=== PATIENT | female | born 1985 | race Caucasian/White ===

== ENCOUNTER 2016-12-29 04:17 | Inpatient (IN) | payer OTHER ==
--- NOTE | ~2016-12-29 | OP ---
Record Of Operation [facility] [address] [place]. [address] NAME: TERRIE PACE : 83 STATUS : DIS IN PAT#: [id number] AGE: 31 ADM/REG DATE : 12/29/16 MR#: [id number] REPORT SERV DATE: 01/01/17 DICTATED BY: PARADISE FERREIRA II DATE: 01/01/17 REPORT STATUS : Draft TRANSCRIBED BY: MODYusuf DATE: 01/01/17 DATE OF PROCEDURE: 12/29/2016 PREOPERATIVE DIAGNOSES: 1. L5-S1 degenerative disk disease with significant diskogenic back pain. 2. Foraminal stenosis, L5-S1. 3. Bilateral lower extremity radiculopathy secondary to stenosis. POSTOPERATIVE DIAGNOSES: 1. L5-S1 degenerative disk disease with significant diskogenic back pain. 2. Foraminal stenosis, L5-S1. 3. Bilateral lower extremity radiculopathy secondary to stenosis. PROCEDURE: Stage I (anterior) 1. L5-S1 anterior interbody arthrodesis. 2. Application of prosthetic device L5-S1. 3. Anterior instrumentation L5-S1. Stage II (posterior) 1. Posterior L5-S1 arthrodesis. 2. Posterior nonsegmental instrumentation, L5-S1. 3. Use of allograft substitute and bone morphogenic protein. 4. Use of the stereotactic guidance. SURGEON: Paradise Ferreira M.D. (Dr. Stephenson was co-surgeon for the anterior interbody arthrodesis). FLUIDS: 1800 mL LR. ESTIMATED BLOOD LOSS: 75 mL. IMPLANTS: Globus anterior, Alphatec posterior. COMPLICATIONS: None. PREOPERATIVE HISTORY: This is a very friendly, 31-year-old female suffering with significant diskogenic low back pain worse with sitting, coughing, and sneezing. The back pain was much improved with standing. She is in excellent shape and is not overweight. She may struggle with this pain for some time. The pain radiates also into the legs. We discussed the pros and cons of continuing nonoperative care versus surgery. We discussed the rates of success versus failure of the surgery to improve back pain and leg pain respectively. We also discussed the risk of infection and pulmonary embolus and DVT. DESCRIPTION OF PROCEDURE: After informed consent was obtained, the patient was brought to the operating room at her request, and general anesthesia achieved. She was placed in the supine position and the abdomen was prepped and draped in a sterile fashion. Dr. Stephenson performed the retroperitoneal exposure through a transverse incision. Record Of Operation [facility] [address] [place]. [address] NAME: TERRIE PACE : 83 STATUS : DIS IN PAT#: [id number] AGE: 31 ADM/REG DATE : 12/29/16 MR#: [id number] REPORT SERV DATE: 01/01/17 DICTATED BY: PARADISE FERREIRA II DATE: 01/01/17 REPORT STATUS : Draft TRANSCRIBED BY: MODYusuf DATE: 01/01/17 Under loupe magnification and head lamp, the incision was now made with the knife. The diskectomy was completed with the pituitary rongeurs, Kerrison rongeurs, and the curettes. The parallel endplates were created and the posterior lateral osteophytes removed. The area was now irrigated. Punctate bleeding bone was identified on both endplates. Next, the prosthetic device was then chosen and placed at L5-S1. This contained allograft substitute and bone morphogenic protein. Next, the anterior instrumentation was applied. This was a separate plate and screw construct. Two screws were placed into L5 and S1 and multiplanar imaging confirmed acceptable placement of the implants. At this point, routine closure was performed by Dr. Stephenson and his team. Please see his dictation for details. Next, the patient was then turned to the prone position, and the back was prepped and draped in a sterile fashion. The stereotactic spinal imaging system was initiated following the placement of the iliac crest pin and completion of the CT scan. The stereotactic guidance was then used throughout the case. Next, the minimally invasive incision was performed and the minimally invasive quadrant retractor placed over the left L5-S1 facet. The facet capsule was removed. No formal facetectomy was performed as we had indirectly distracted the foramina with the anterior surgery. At this point, the L5 and S1 pedicle screws were placed. The bone quality was excellent. A repeat CT scan confirmed acceptable placement of the implants. The victorino already was then final tightened. Following irrigation, the decortication was performed of the facet. We also decorticated the sacral ala and the transverse process of L5 and allograft substitute and bone morphogenic protein placed along these decorticated surfaces. A standard closure was performed. The patient was then extubated and transferred to PACU in stable condition. POSTOPERATIVE PLAN: Plan will be for postoperative Lovenox while in the hospital followed by daily 81 mg aspirin for two weeks at home. WILLIAM/KAYA Paradise Ferreira II, M.D. / [id number] Record Of [address] [address] NAME: TERRIE PACE : 83 STATUS : DIS IN PAT#: [id number] AGE: 31 ADM/REG DATE : 12/29/16 MR#: [id number] REPORT SERV DATE: 01/01/17 DICTATED BY: PARADISE FERREIRA II DATE: 01/01/17 REPORT STATUS : Draft TRANSCRIBED BY: KAYA DATE: 01/01/17 CC: Owen Brown II, M.D.
--- NOTE | ~2016-12-29 | OP ---
Record Of Operation [facility] [address] [place]. [address] NAME: TERRIE PACE : 83 STATUS : ADM IN PAT#: [id number] AGE: 31 ADM/REG DATE : 12/29/16 MR#: [id number] REPORT SERV DATE: 12/30/16 DICTATED BY: MICHAEL FARIA II DATE: 12/30/16 REPORT STATUS : Draft TRANSCRIBED BY: MODL DATE: 12/30/16 DATE OF PROCEDURE: 12/29/2016 ATTENDING CO-SURGEON: Michael Faria M.D. SECOND ATTENDING CO-SURGEON: Kai Ferreira M.D. PREOPERATIVE DIAGNOSIS: Severe degenerative disk disease with spondylolisthesis at L5-S1. POSTOPERATIVE DIAGNOSIS: Severe degenerative disk disease with spondylolisthesis at L5-S1. PROCEDURES: 1. Anterior exposure of the lumbar spine. 2. Anterior lumbar interbody fusion with instrumentation at L5-S1. ANESTHESIA: General. ESTIMATED BLOOD LOSS: 50 mL. Please note, I am a co-surgeon. I am dictating a portion of the note. The remaining portion is found in a note by Dr. Ferreira. DETAILS: The patient was taken to the operating room and placed in supine position on the table. General anesthesia was achieved. Protective padding and a lumbar roll were placed. We then prepped and draped in a sterile fashion. An incision was made directly over L5-S1 in a transverse fashion. The rectus sheath was then opened vertically. We entered the preperitoneal space and bluntly dissected into the retroperitoneal space and swept the peritoneum, the ureter, and abdominal contents to the right to expose the iliac bifurcation. The middle sacral vessels were identified and ligated with 2-0 silk suture. With continued dissection, we completely mobilized the vessels and exposed L5-S1 and marked this with fluoroscopy. A diskectomy with graft replacement and instrumentation was performed. Please see Dr. Ferreira's note for details of this. Once x-ray confirmed adequate placement, we inspected the retroperitoneum. It was hemostatic. The ureter was intact. We removed the retractors and allowed the abdominal contents return to their normal anatomic position. We then closed using running PDS and interrupted Vicryl. We closed the skin with Monocryl. At the end of the procedure, the patient was stable. She tolerated it well. LS/MODL Michael Faria II, M.D. Record Of Operation [facility] [id number] [facility] [address] [place]. [address] NAME: TERRIE PACE : 83 STATUS : ADM IN PAT#: [id number] AGE: 31 ADM/REG DATE : 12/29/16 MR#: [id number] REPORT SERV DATE: 12/30/16 DICTATED BY: MICHAEL FARIA II DATE: 12/30/16 REPORT STATUS : Draft TRANSCRIBED BY: KAYA DATE: 12/30/16 / [id number] CC: Owen Brown II, M.D.
--- NOTE | ~2016-12-29 | DS ---
Discharge Summary [facility] [address] [place]. [address] NAME: TERRIE PACE : 83 STATUS : DIS IN PAT#: [id number] AGE: 31 ADM/REG DATE : 12/29/16 MR#: [id number] REPORT SERV DATE: 01/12/17 DICTATED BY: PARADISE FERREIRA II DATE: 01/11/17 REPORT STATUS : Draft TRANSCRIBED BY: KAYA DATE: 01/11/17 Data Collection from hospitalization DISCHARGE DIAGNOSES: 1. L5-S1 degenerative disk disease with significant discogenic back pain. 2. Foraminal stenosis, L5-S1. 3. Bilateral lower extremity radiculopathy secondary to stenosis. CONSULTATION: Dr. Michael Stephenson. PROCEDURES PERFORMED: 1. Anterior exposure of the lumbar spine, anterior lumbar interbody fusion with instrumentation at L5-S1, 12/29/2016. 2. Stage I anterior: L5-S1 anterior interbody arthrodesis, application of prosthetic device, L5-S1; anterior instrumentation, L5-S1. Stage II posterior: Posterior L5-S1 arthrodesis; posterior nonsegmental instrumentation, L5-S1; use of allograft substitute and bone morphogenetic protein; use of stereotactic guidance, 12/29/2016. PATHOLOGY: Bone and soft tissue, [id number] of bone and cartilage. Hematopoietic marrow was present, it showed trilineage maturation. No evidence of infection or tumor. DISCHARGE MEDICATIONS: Valium 5 mg four times a day as needed, Neurontin 300 mg three times a day, MS Contin 30 mg every 12 hours, Zofran 4 mg every six hours as needed, Percocet 10/325 one to two tablets every four to six hours as needed. CONDITION AT DISCHARGE: Stable. DISPOSITION: The patient was discharged home on a regular diet with activities as instructed. She would follow up with me, 01/21/2017. HOSPITAL COURSE: This is a 31-year-old female, who had complained of lumbar spine related symptoms. The symptoms were located in the lower back with radiation into the left lower extremity with associated numbness, tingling, and weakness. The patient has L5-S1 degenerative disk disease with significant discogenic back pain and foraminal stenosis, L5- S1. She has bilateral lower extremity radiculopathy secondary to stenosis. Treatment options were discussed and it was elected to proceed with surgical intervention. She was admitted to the hospital at this time for further evaluation and treatment. Upon admission, she was taken to the operating room, where she underwent the above-mentioned procedure by myself and Dr. Michael Stephenson. She tolerated this well and there were no complications. On postop day #1, she was evaluated by Physical Therapy. She was passing flatus. She was hungry. Her abdomen was soft. We were going to advance her diet. On postop day #2, she had some pain at the incision. Her abdomen was soft and nontender. She was ambulatory. Discharge planning was performed. She continued to do well. On 01/01/2017, she was eager to go home. She had had a bowel movement. She did have some tenderness in the left lower quadrant. Discharge instructions were given. Due to her improved and stable condition, she was discharged home with the above-stated instructions. Discharge Summary [address] [address] NAME: TERRIE PACE : 83 STATUS : DIS IN PAT#: [id number] AGE: 31 ADM/REG DATE : 12/29/16 MR#: [id number] REPORT SERV DATE: 01/12/17 DICTATED BY: PARADISE FERREIRA II DATE: 01/11/17 REPORT STATUS : Draft TRANSCRIBED BY: KAYA DATE: 01/11/17 Information collected by: Jennifer Dhaliwal I submit the above information as my discharge summary. DIANE/KAYA Paradise Ferreira II, M.D. / [id number] CC: Owen Brown II, M.D. Larry Sprouse II, M.D.
[~2016-12-29 04:17] MED LIST: *DENIES; METHOC500B PO; NEUR300 PO; NORCO1 TA1 PO
[2016-12-29 06:00] LABS: HEMATOCRIT 40.8 % (36.0-48.0); HEMOGLOBIN 14.2 g/dL (12.0-16.0)
[2016-12-29 06:17] LABS: BUN (BLOOD UREA NITROGEN) 9 MG/DL (6-23); CALCIUM, SERUM 8.9 MG/DL (8.5-10.4); CHLORIDE, SERUM 103 MMOL/L (96-112); CO2 (CARBON DIOXIDE) 28 MMOL/L (24-34); CREATININE 0.86 MG/DL (0.55-1.02); GFR AFRICAN AMERICAN 104 ML/MIN (>=60); GFR NON AFRICAN AMERICAN 89 ML/MIN (>=60); GLUCOSE, SERUM 88 MG/DL (60-99); POTASSIUM, SERUM 3.6 MMOL/L (3.5-5.3); SODIUM, SERUM 141 MMOL/L (135-148)
[2017-01-01] MEDS ORDERED: MSCONTIN PO (09:49)
[2017-01-01] MEDS ORDERED: V5 PO (09:49)
[2017-01-01] MEDS ORDERED: ZOFRAN ODT4 MG PO (09:50)
[2017-01-01] MEDS ORDERED: PERCOCET 10/3251 TAB PO (09:50)
== END 2017-01-01 12:14 | disposition home or self-care (01) | DRG 455 ==
LOC: SDC/OF 04:17 → PACU 10:00 → 3SO 11:48
PROVIDERS: Orthopaedic Surgery
DX: M51.17 Intervertebral disc disorders with radiculopathy, lumbosacral region (principal)
CPT/HCPCS: 36415; 80048; 82962; 84703; 85014; 85018; 86850; 86900; 86901; 87641; 88304; 88311; 97116-GP; 97161-GP; A9270-GY; C1713; C1769; J0690; J1170; J1644; J2250; J2405; J2710; J3010